=== PATIENT | male | born 1955 | race Caucasian/White ===

== ENCOUNTER 2017-04-19 00:30 | Inpatient (IN) | payer OTHER ==
[~2017-04-19] VITALS: Ht 180.3 cm; Wt 90.0 kg
[2017-04-19] MEDS ORDERED: OMEP20TA62 PO (00:56)
[2017-04-19] MEDS ORDERED: FAMOTIDINE 20 MG/2 ML ONE (01:27)
[2017-04-19] MEDS ORDERED: MORPHINE SULFATE 4 MG/ML, 1ML ONE ×2 (01:27→02:34)
[2017-04-19] MEDS ORDERED: ONDANSETRON 2MG/ML, 2ML ONE (01:27)
[2017-04-19] MEDS ORDERED: ONDANSETRON 2MG/ML, 2ML IVPush ONE (01:30)
[2017-04-19] MEDS ORDERED: SODIUM CHLORIDE FLUSH 10ML SYR IVF ONE (01:30)
[2017-04-19] MEDS ORDERED: SODIUM CHLORIDE 0.9% 1,000ML IVBOLUS ONE (01:30)
[2017-04-19] MEDS ORDERED: FAMOTIDINE 20 MG/2 ML IVP ONE (01:30)
[2017-04-19] MEDS: MORPHINE SULFATE 4 MG/ML, 1ML IVPush PRN ×2 (01:38→02:36)
[2017-04-19 02:12] LABS: ASPARTATE AMINO TRANSFERASE 27 U/L (15-37); BLOOD UREA NITROGEN 11 mg/dL (7-18)
[2017-04-19] MEDS ORDERED: HYDROmorphone 1 MG/ML, 1ML ONE (03:00)
[2017-04-19] MEDS ORDERED: HYDROmorphone 1 MG/ML, 1ML IVPush PRN (03:00)
[2017-04-19 03:02] LABS: IS PT STATUS REG ER OR PRE ER? YES
[2017-04-19] MEDS ORDERED: CEFOTETAN PMX 2GM/50ML 50 ML IV ONE (04:30)
[2017-04-19] MEDS ORDERED: OMNIPAQUE 350 MG/ML, 100ML BOTTLE ONE (05:18)
[2017-04-19] MEDS ORDERED: D5%-0.45NACL+KCL 20MEQ 1,000 ML IV SCH (05:39)
[2017-04-19] MEDS ORDERED: ACETAMINOPHEN 325 MG TABLET PO PRN (06:00)
[2017-04-19] MEDS ORDERED: TEMAZEPAM 15 MG CAPSULE PO PRN (06:00)
[2017-04-19] MEDS ORDERED: ONDANSETRON 2MG/ML, 2ML IVPush PRN (06:00)
[2017-04-19] MEDS ORDERED: PROMETHAZINE 25 MG/ML, 1ML IM PRN (06:00)
[2017-04-19 06:06] VITALS: BP 148/88
[2017-04-19 07:11] VITALS: BP 104/62
[2017-04-19] MEDS: PANTOPRAZOLE 40 MG IV IVPush SCH ×2 (08:00→20:35)
[2017-04-19] MEDS ORDERED: FENTANYL PF 100 MCG/2ML ONE (10:27)
[2017-04-19] MEDS ORDERED: MIDAZOLAM 1 MG/ML, 5ML ONE (10:27)
[2017-04-19 13:40] VITALS: BP 99/63
[2017-04-19] MEDS ORDERED: THIAMINE 100MG TABLET PO ONE (17:00)
[2017-04-19] MEDS ORDERED: CEFOTETAN PMX 2GM/50ML 50 ML IV SCH (17:00)
[2017-04-19] MEDS: SODIUM CHLORIDE 0.9% 1,000 ML IV SCH (17:36)
[2017-04-19] MEDS: HYDROmorphone 2 MG/ML, 1ML IVPush PRN ×3 (17:36→22:48)
[2017-04-19 20:38] VITALS: BP 148/81
[2017-04-19] MEDS: LORazepam 2 MG/ML, 1ML IVPush PRN (22:32)
[2017-04-20] MEDS: SODIUM CHLORIDE 0.9% 1,000 ML IV SCH ×3 (01:51→23:25)
[2017-04-20] MEDS: HYDROmorphone 2 MG/ML, 1ML IVPush PRN ×5 (01:54→23:26)
[2017-04-20 02:01] VITALS: BP 132/69
[2017-04-20 06:06] LABS: BLOOD UREA NITROGEN 9 mg/dL (7-18)
[2017-04-20 06:09] LABS: ASPARTATE AMINO TRANSFERASE 20 U/L (15-37)
[2017-04-20 08:09] VITALS: BP 142/68
[2017-04-20] MEDS: PANTOPRAZOLE 40 MG IV IVPush SCH ×2 (08:13→22:40)
[2017-04-20] MEDS ORDERED: FOLIC ACID 1 MG TABLET PO SCH (09:00)
[2017-04-20] MEDS ORDERED: THIAMINE 100MG TABLET PO SCH (09:00)
[2017-04-20] MEDS ORDERED: NEOSTIGMINE 1 MG/ML, 10ML ONE (09:55)
[2017-04-20] MEDS ORDERED: PROPOFOL 10 MG/ML, 20ML ONE (09:55)
[2017-04-20] MEDS ORDERED: ONDANSETRON 2MG/ML, 2ML ONE (09:55)
[2017-04-20] MEDS ORDERED: ROCURONIUM 10 MG/ML ONE (09:55)
[2017-04-20] MEDS ORDERED: SUCCINYLCHOLINE 20 MG/ML, 10ML ONE (09:55)
[2017-04-20] MEDS ORDERED: GLYCOPYRROLATE 0.2MG/1ML ONE (09:55)
[2017-04-20] MEDS ORDERED: CEFAZOLIN 1,000 MG ONE (09:55)
[2017-04-20 14:19] VITALS: BP 121/72
[2017-04-20] MEDS: CEFOTETAN PMX 2GM/50ML 50 ML IV SCH (16:16)
[2017-04-20] MEDS ORDERED: BUPIVACAINE/PF-EPI 0.5% 1:200K ONE (19:19)
[2017-04-20] MEDS ORDERED: FENTANYL PF 250 MCG/5ML ONE (20:18)
[2017-04-20] MEDS ORDERED: BUPIVACAINE/PF-EPI 0.5% 1:200K INFIL ONE ×2 (20:47→20:48)
[2017-04-20] MEDS ORDERED: ACETAMINOPHEN 325 MG TABLET PO PRN (21:00)
[2017-04-20] MEDS ORDERED: HYDROmorphone 1 MG/ML, 1ML IV PRN (21:00)
[2017-04-20] MEDS ORDERED: PROMETHAZINE 25 MG/ML, 1ML IV PRN (21:00)
[2017-04-20] MEDS ORDERED: FENTANYL PF 100 MCG/2ML IV PRN (21:00)
[2017-04-20] MEDS ORDERED: OXYcodone 5 MG/5 ML ORAL.SOL UDC PO PRN (21:00)
[2017-04-20] MEDS ORDERED: OXYcodone 5 MG/5 ML ORAL.SOL UDC ONE (21:27)
[2017-04-20 22:22] VITALS: BP 136/70
[2017-04-21 00:38] VITALS: BP 144/75
[2017-04-21] MEDS: LORazepam 2 MG/ML, 1ML IVPush PRN (01:40)
[2017-04-21] MEDS: CEFOTETAN PMX 2GM/50ML 50 ML IV SCH ×2 (03:10→15:32)
[2017-04-21] MEDS: HYDROmorphone 2 MG/ML, 1ML IVPush PRN ×3 (03:11→22:55)
[2017-04-21 06:06] LABS: ASPARTATE AMINO TRANSFERASE 434 U/L (15-37); BLOOD UREA NITROGEN 10 mg/dL (7-18)
[2017-04-21 07:29] VITALS: BP 118/69
[2017-04-21] MEDS: PANTOPRAZOLE 40 MG IV IVPush SCH ×2 (07:40→20:31)
[2017-04-21] MEDS: SODIUM CHLORIDE 0.9% 1,000 ML IV SCH (10:36)
[2017-04-21] MEDS: POTASSIUM CHLORIDE 10 MEQ in SODIUM CHLORIDE 0.9% 1,000 ML IV SCH ×2 (11:40→22:56)
[2017-04-21] MEDS: METRONIDAZOLE PMX 500MG/100ML 100 ML IV SCH ×2 (11:40→20:32)
[2017-04-21 12:59] VITALS: BP 124/76
[2017-04-21] MEDS: CALCIUM CARBONATE 500 MG TAB.CHEW PO PRN (15:32)
[2017-04-21 19:59] VITALS: BP 119/75
[2017-04-22 02:04] VITALS: BP 115/72
[2017-04-22] MEDS: CEFOTETAN PMX 2GM/50ML 50 ML IV SCH ×2 (02:43→14:50)
[2017-04-22] MEDS: METRONIDAZOLE PMX 500MG/100ML 100 ML IV SCH ×3 (04:22→21:26)
[2017-04-22 06:14] LABS: ASPARTATE AMINO TRANSFERASE 118 U/L (15-37); BLOOD UREA NITROGEN 12 mg/dL (7-18)
[2017-04-22] MEDS: POTASSIUM CHLORIDE 10 MEQ in SODIUM CHLORIDE 0.9% 1,000 ML IV SCH (06:46)
[2017-04-22 07:33] VITALS: BP 117/72
[2017-04-22] MEDS: PANTOPRAZOLE 40 MG IV IVPush SCH ×2 (08:05→21:26)
[2017-04-22] MEDS ORDERED: HYDROmorphone 1 MG/ML, 1ML ONE (09:49)
[2017-04-22] MEDS: HYDROmorphone 2 MG/ML, 1ML IVPush PRN ×2 (09:53→14:57)
[2017-04-22] MEDS: CALCIUM CARBONATE 500 MG TAB.CHEW PO PRN (12:11)
[2017-04-22 12:59] VITALS: BP 121/75
[2017-04-22 19:09] VITALS: BP 127/79
[2017-04-23] MEDS: CEFOTETAN PMX 2GM/50ML 50 ML IV SCH ×2 (03:08→15:32)
[2017-04-23 03:11] VITALS: BP 108/62
[2017-04-23] MEDS: METRONIDAZOLE PMX 500MG/100ML 100 ML IV SCH ×3 (04:50→20:33)
[2017-04-23 05:50] LABS: ASPARTATE AMINO TRANSFERASE 50 U/L (15-37); BLOOD UREA NITROGEN 14 mg/dL (7-18)
[2017-04-23] MEDS: PANTOPRAZOLE 40 MG IV IVPush SCH ×2 (08:01→20:33)
[2017-04-23 09:02] VITALS: BP 124/77
[2017-04-23] MEDS ORDERED: FENTANYL PF 250 MCG/5ML ONE (13:43)
[2017-04-23] MEDS ORDERED: MIDAZOLAM 1 MG/ML, 2ML ONE (13:43)
[2017-04-23] MEDS ORDERED: hydrALAzine 20 MG/ML, 1ML IV PRN (14:30)
[2017-04-23] MEDS ORDERED: ONDANSETRON 2MG/ML, 2ML IVPush PRN (14:30)
[2017-04-23] MEDS ORDERED: FENTANYL PF 100 MCG/2ML IV PRN (14:30)
[2017-04-23] MEDS ORDERED: ALBUTEROL SULFATE 2.5 MG/3 ML NPPB PRN (14:30)
[2017-04-23] MEDS ORDERED: HYDROmorphone 1 MG/ML, 1ML IV PRN (14:30)
[2017-04-23] MEDS ORDERED: LABETALOL 5MG/ML, 20ML IV PRN (14:30)
[2017-04-23] MEDS ORDERED: PROMETHAZINE 25 MG/ML, 1ML IV PRN (14:30)
[2017-04-23] MEDS ORDERED: OXYcodone 5 MG/5 ML ORAL.SOL UDC PO PRN (14:30)
[2017-04-23] MEDS ORDERED: EPHEDRINE 50 MG/ML, 1ML IVPush PRN (14:30)
[2017-04-23 15:57] VITALS: BP 105/71
[2017-04-23] MEDS ORDERED: ROCURONIUM 10 MG/ML ONE (16:04)
[2017-04-23] MEDS ORDERED: SUCCINYLCHOLINE 20 MG/ML, 10ML ONE (16:04)
[2017-04-23] MEDS ORDERED: ONDANSETRON 2MG/ML, 2ML ONE (16:04)
[2017-04-23] MEDS ORDERED: PROPOFOL 10 MG/ML, 20ML ONE (16:04)
[2017-04-23] MEDS ORDERED: HYDROmorphone 1 MG/ML, 1ML ONE (18:04)
[2017-04-23] MEDS: HYDROmorphone 2 MG/ML, 1ML IVPush PRN ×2 (18:06→18:40)
[2017-04-23 19:19] VITALS: BP 120/76
[2017-04-23] MEDS: LORazepam 2 MG/ML, 1ML IVPush PRN (20:33)
[2017-04-23] MEDS ORDERED: HYDROmorphone 2 MG/ML, 1ML IVPush PRN (23:00)
[2017-04-24] VITALS: BP 105/55
[2017-04-24] MEDS: CEFOTETAN PMX 2GM/50ML 50 ML IV SCH ×2 (03:31→14:32)
[2017-04-24 03:35] VITALS: BP 123/79
[2017-04-24] MEDS: METRONIDAZOLE PMX 500MG/100ML 100 ML IV SCH ×3 (04:28→20:46)
[2017-04-24 05:02] LABS: ASPARTATE AMINO TRANSFERASE 22 U/L (15-37); BLOOD UREA NITROGEN 17 mg/dL (7-18)
[2017-04-24 07:00] VITALS: BP 129/74
[2017-04-24] MEDS: PANTOPRAZOLE 40 MG IV IVPush SCH (08:13)
[2017-04-24] MEDS ORDERED: HYDROcodone/APAP 5/325 TABLET PO PRN (12:30)
[2017-04-24] MEDS ORDERED: BISACODYL 10 MG SUPP PR PRN (12:30)
[2017-04-24] MEDS ORDERED: SIMETHICONE 80 MG CHEW TAB PO PRN (12:30)
[2017-04-24] MEDS: POLYETHYLENE GLYCOL 17 GM PACKET PO SCH (14:32)
[2017-04-24 15:50] VITALS: BP 112/70
[2017-04-24] MEDS: SENNA/DOCUSATE TABLET PO SCH (20:46)
[2017-04-24] MEDS: DOCUSATE 100 MG CAPSULE PO SCH (20:46)
[2017-04-24 21:17] VITALS: BP 108/67
[2017-04-24] MEDS: CALCIUM CARBONATE 500 MG TAB.CHEW PO PRN (23:46)
[2017-04-25 02:32] VITALS: BP 110/69
[2017-04-25] MEDS: CEFOTETAN PMX 2GM/50ML 50 ML IV SCH (02:37)
[2017-04-25] MEDS: METRONIDAZOLE PMX 500MG/100ML 100 ML IV SCH ×2 (04:58→12:30)
[2017-04-25 06:04] LABS: ASPARTATE AMINO TRANSFERASE 20 U/L (15-37); BLOOD UREA NITROGEN 14 mg/dL (7-18)
[2017-04-25] MEDS ORDERED: POTASSIUM CHLORIDE 20 MEQ TAB.ER.PRT PO ONE (07:00)
[2017-04-25] MEDS ORDERED: OMEPRAZOLE 20 MG CAPSULE.DR PO SCH (07:30)
[2017-04-25 07:40] VITALS: BP 102/69
[2017-04-25] MEDS: DOCUSATE 100 MG CAPSULE PO SCH (09:00)
[2017-04-25] MEDS: SENNA/DOCUSATE TABLET PO SCH (09:00)
[2017-04-25] MEDS: POLYETHYLENE GLYCOL 17 GM PACKET PO SCH (09:00)
[2017-04-25] MEDS ORDERED: OMEP20TA62 PO (10:43)
[2017-04-25] MEDS ORDERED: HYDR-3240 PO (10:43)
[2017-04-25 12:41] VITALS: BP 103/66
== END 2017-04-25 12:40 | disposition home or self-care (01) | DRG 853 ==
LOC: ED 03:41 → EDIP 04:53 → 4NOR 05:33
PROVIDERS: ADMIT Internal Medicine
PROC: 0DB98ZX Excision of Duodenum, Via Natural or Artificial Opening Endoscopic, Diagnostic (ICD-10-PCS; 2017-04-19)
PROC: 0DB78ZX Excision of Stomach, Pylorus, Via Natural or Artificial Opening Endoscopic, Diagnostic (ICD-10-PCS; 2017-04-19)
PROC: 0DB58ZX Excision of Esophagus, Via Natural or Artificial Opening Endoscopic, Diagnostic (ICD-10-PCS; 2017-04-19)
PROC: 0FT44ZZ Resection of Gallbladder, Percutaneous Endoscopic Approach (ICD-10-PCS; principal; 2017-04-20 18:30)
PROC: 0F798DZ Dilation of Common Bile Duct with Intraluminal Device, Via Natural or Artificial Opening Endoscopic (ICD-10-PCS; 2017-04-23)
DX: A41.9 Sepsis, unspecified organism (principal); N17.0 Acute kidney failure with tubular necrosis; K81.2 Acute cholecystitis with chronic cholecystitis; K91.89 Other postprocedural complications and disorders of digestive system; J98.11 Atelectasis; E87.1 Hypo-osmolality and hyponatremia; K21.9 Gastro-esophageal reflux disease without esophagitis; Y83.2 Surgical operation with anastomosis, bypass or graft as the cause of abnormal reaction of the patient, or of later complication, without mention of misadventure at the time of the procedure; D53.9 Nutritional anemia, unspecified; R09.02 Hypoxemia; Z87.891 Personal history of nicotine dependence
CPT/HCPCS: 36415; 71010; 74177; 74181; 74328; 76700; 78226; 80053; 83690; 83735; 84100; 84484; 85025; 85610; 87338; 88304; 88305; 88342; 93005; 96361; 96365; 96375; 96376; 99152; 99153; J0690; J1170; J2250; J2405; J2704; J2710; J3010; J3480; J3490; Q9967; A9537; C1769; C1894; C2625; C9113; C9898; G0461; J0330; J2060; J7030; S0028; S0074